=== PATIENT | female | born 1960 | race Caucasian/White ===

== ENCOUNTER 2019-06-23 04:22 | Emergency (ER) | payer OTHER ==
[~2019-06-23] VITALS: Ht 162.6 cm; Wt 98.0 kg
[2019-06-23 04:27] VITALS: Ht 162.6 cm; Wt 98.0 kg
[2019-06-23 05:33] LABS: CALCIUM 8.1 mg/dL (8.5-10.1); CARBON DIOXIDE 28.5 mmol/L (21-32); CHLORIDE SERUM 102 mmol/L (98-107); CREATININE SERUM 0.9 mg/dL (0.6-1.0); GFR1 > 60 mL/min; GLUCOSE SERUM 110 mg/dL (74-106); POTASSIUM SERUM 3.3 mmol/L (3.5-5.1); SODIUM SERUM 138 mmol/L (136-145)
[2019-06-23 05:39] LABS: ALKALINE PHOSPHATASE 90 U/L (46-116); ALT/SGPT 21 U/L (14-59); AST/SGOT 13 U/L (15-37); BILIRUBIN TOTAL 0.5 mg/dL (0.20-1.00); LIPASE 253 IU/L (73-393)
[2019-06-23 05:40] LABS: TOTAL PROTEIN, SERUM 6.1 g/dL (6.4-8.2)
[2019-06-23 06:34] LABS: AMPHETAMINE QUAL UR NONE DETECTED (See below)
[2019-06-23 06:53] VITALS: BP 161/98
== END 2019-06-23 06:53 | disposition home or self-care (01) ==
LOC: ED 04:22
PROVIDERS: Emergency Medicine
DX: R11.0 Nausea (principal)
CPT/HCPCS: 36415; Q0162

== ENCOUNTER 2019-06-27 03:48 | Emergency (ER) | payer OTHER ==
[~2019-06-27] VITALS: Ht 165.1 cm; Wt 127.0 kg
[2019-06-27 04:13] VITALS: Ht 165.1 cm; Wt 127.0 kg
[2019-06-27 06:46] VITALS: BP 148/72
== END 2019-06-27 06:46 | disposition home or self-care (01) ==
LOC: ED 03:48
DX: M17.12 Unilateral primary osteoarthritis, left knee (principal); M25.512 Pain in left shoulder; I10 Essential (primary) hypertension; E66.01 Morbid (severe) obesity due to excess calories; Z59.0 Homelessness; W18.39XA Other fall on same level, initial encounter; Y93.89 Activity, other specified; Y92.89 Other specified places as the place of occurrence of the external cause; Y99.8 Other external cause status
CPT/HCPCS: J1885